=== PATIENT | male | born 1965 | race Native Hawaiian/Other Pacific Islander ===

== ENCOUNTER 2018-10-07 07:49 | Emergency (ER) | payer OTHER ==
[~2018-10-07] VITALS: Ht 185.4 cm; Wt 129.3 kg
[~2018-10-07 07:49] MED LIST: AMOXICILLIN ER775 MG PO
[2018-10-07 08:00] VITALS: TEMP 98
[2018-10-07 10:38] VITALS: BP 144/90
== END 2018-10-07 10:39 | disposition home or self-care (01) ==
LOC: ED 07:49
DX: S39.012A Strain of muscle, fascia and tendon of lower back, initial encounter (principal); V89.0XXA Person injured in unspecified motor-vehicle accident, nontraffic, initial encounter; Y92.89 Other specified places as the place of occurrence of the external cause
CPT/HCPCS: 99282

== ENCOUNTER 2018-11-18 18:51 | Emergency (ER) | payer OTHER ==
[~2018-11-18] VITALS: Ht 180.3 cm; Wt 103.4 kg
[2018-11-18 20:49] VITALS: BP 154/92; TEMP 98.4
== END 2018-11-18 20:49 | disposition home or self-care (01) ==
LOC: ED 18:51
DX: S63.591A Other specified sprain of right wrist, initial encounter (principal); X50.1XXA Overexertion from prolonged static or awkward postures, initial encounter; Y92.89 Other specified places as the place of occurrence of the external cause
CPT/HCPCS: 99282

== ENCOUNTER 2019-03-24 18:42 | Emergency (ER) | payer OTHER ==
[~2019-03-24] VITALS: Ht 180.3 cm; Wt 127.0 kg
[2019-03-24 18:44] VITALS: TEMP 98.7
[2019-03-24 19:20] LABS: PLATELET COUNT 287 K/uL (142-355)
[2019-03-24 19:27] LABS: POTASSIUM 3.8 mmol/L (3.6-5.2); SODIUM 139 mmol/L (136-145)
[2019-03-24 19:45] LABS: PARTIAL THROMBOPLASTIN TIME 25.4 SECONDS (24.5-33.6)
[2019-03-24 23:47] VITALS: BP 163/112
== END 2019-03-24 23:48 | disposition home or self-care (01) ==
LOC: ED 18:42
PROVIDERS: Emergency Medicine Emergency Medical Services
DX: R07.89 Other chest pain (principal)
CPT/HCPCS: 80053; 82550; 84484; 85027; 85610; 85730; 93005; 99284

== ENCOUNTER 2020-05-30 19:52 | Emergency (ER) | payer OTHER ==
[~2020-05-30] VITALS: Ht 180.3 cm; Wt 91.6 kg
[2020-05-30 22:53] LABS: PLATELET COUNT 256 K/uL (142-355)
[2020-05-30 23:03] VITALS: BP 136/88; TEMP 98.9
[2020-05-30 23:04] LABS: POTASSIUM 4.4 mmol/L (3.6-5.2)
== END 2020-05-30 23:04 | disposition home or self-care (01) ==
LOC: ED 19:52
PROVIDERS: Family Medicine
DX: J02.0 Streptococcal pharyngitis (principal); J06.9 Acute upper respiratory infection, unspecified
CPT/HCPCS: 80053; 82728; 85027; 85379; 87502; 87651; 99283

== ENCOUNTER 2020-07-14 13:27 | Outpatient (CLI) | payer OTHER | END 2020-07-14 19:39 | disposition home or self-care (01) | LOC: LAB 13:27 | PROVIDERS: ATTEND Family Medicine | DX: Z20.828 Contact with and (suspected) exposure to other viral communicable diseases (principal) | CPT/HCPCS: 87635; G2023; U0003 ==

== ENCOUNTER 2020-08-31 11:10 | Emergency (ER) | payer OTHER ==
[~2020-08-31] VITALS: Ht 180.3 cm; Wt 103.9 kg
[2020-08-31 11:33] VITALS: BP 164/106; TEMP 97.8
== END 2020-08-31 12:53 | disposition home or self-care (01) ==
LOC: ED 11:10
DX: S13.4XXA Sprain of ligaments of cervical spine, initial encounter (principal); S33.5XXA Sprain of ligaments of lumbar spine, initial encounter; V89.2XXA Person injured in unspecified motor-vehicle accident, traffic, initial encounter; Y92.89 Other specified places as the place of occurrence of the external cause
CPT/HCPCS: 99283

== ENCOUNTER 2020-11-07 16:34 | Emergency (ER) | payer OTHER ==
[~2020-11-07] VITALS: Ht 180.3 cm; Wt 113.4 kg
[2020-11-07 21:06] VITALS: BP 156/88; TEMP 98.7
== END 2020-11-07 21:06 | disposition home or self-care (01) ==
LOC: ED 16:34
PROC: 0HQ1XZZ Repair Face Skin, External Approach (ICD-10-PCS; principal; 2020-11-07)
DX: S01.112A Laceration without foreign body of left eyelid and periocular area, initial encounter (principal); W20.8XXA Other cause of strike by thrown, projected or falling object, initial encounter; Y92.89 Other specified places as the place of occurrence of the external cause
CPT/HCPCS: 99283

== ENCOUNTER 2021-03-22 15:48 | Emergency (ER) | payer OTHER ==
[~2021-03-22] VITALS: Ht 185.4 cm; Wt 95.3 kg
[2021-03-22 17:20] VITALS: BP 158/85; TEMP 98
== END 2021-03-22 17:20 | disposition home or self-care (01) ==
LOC: ED 15:48
DX: M25.551 Pain in right hip (principal)
CPT/HCPCS: 99282; J1885

== ENCOUNTER 2021-06-30 14:41 | Emergency (ER) | payer OTHER ==
[~2021-06-30] VITALS: Ht 185.4 cm; Wt 91.6 kg
[2021-06-30 15:49] VITALS: BP 147/95; TEMP 99.1
== END 2021-06-30 15:49 | disposition home or self-care (01) ==
LOC: ED 14:41
PROC: 0HQHXZZ Repair Right Upper Leg Skin, External Approach (ICD-10-PCS; principal; 2021-06-30)
DX: S71.111A Laceration without foreign body, right thigh, initial encounter (principal); W26.0XXA Contact with knife, initial encounter; Y92.89 Other specified places as the place of occurrence of the external cause
CPT/HCPCS: 99283; J7040

== ENCOUNTER 2021-09-20 10:33 | Emergency (ER) | payer OTHER ==
[~2021-09-20] VITALS: Ht 180.3 cm; Wt 99.3 kg
[2021-09-20 10:44] VITALS: TEMP 98.4
[2021-09-20 14:04] VITALS: BP 148/98
== END 2021-09-20 14:04 | disposition home or self-care (01) ==
LOC: ED 10:33
DX: S70.01XA Contusion of right hip, initial encounter (principal); X50.9XXA Other and unspecified overexertion or strenuous movements or postures, initial encounter; Y92.89 Other specified places as the place of occurrence of the external cause
CPT/HCPCS: 96372; 99283; J1885

== ENCOUNTER 2021-12-23 16:25 | Emergency (ER) | payer OTHER ==
[~2021-12-23] VITALS: Ht 182.9 cm; Wt 98.9 kg
[2021-12-23 19:05] VITALS: BP 169/100; TEMP 97.7
== END 2021-12-23 19:05 | disposition home or self-care (01) ==
LOC: ED 16:25
DX: M65.871 Other synovitis and tenosynovitis, right ankle and foot (principal)
CPT/HCPCS: 96372; 99283; J1885

== ENCOUNTER 2022-04-17 18:58 | Emergency (ER) | payer OTHER ==
[~2022-04-17] VITALS: Ht 182.9 cm; Wt 100.7 kg
[2022-04-17 20:26] VITALS: BP 142/92; TEMP 98
== END 2022-04-17 20:26 | disposition home or self-care (01) ==
LOC: ED 18:58
DX: J42 Unspecified chronic bronchitis (principal); Z20.822 Contact with and (suspected) exposure to COVID-19
CPT/HCPCS: 87502; 87635; 87651; 99283; U0003

== ENCOUNTER 2022-07-19 20:27 | Emergency (ER) | payer OTHER ==
[~2022-07-19] VITALS: Ht 180.3 cm; Wt 100.2 kg
[2022-07-19 20:35] VITALS: BP 150/99; TEMP 99
== END 2022-07-19 21:25 | disposition home or self-care (01) ==
LOC: ED 20:27
DX: S05.8X1A Other injuries of right eye and orbit, initial encounter (principal); X58.XXXA Exposure to other specified factors, initial encounter; Y93.89 Activity, other specified; Y92.89 Other specified places as the place of occurrence of the external cause
CPT/HCPCS: 99283

== ENCOUNTER 2022-07-29 18:39 | Emergency (ER) | payer OTHER ==
[~2022-07-29] VITALS: Ht 180.3 cm; Wt 100.2 kg
[2022-07-29 19:22] LABS: PLATELET COUNT 319 K/uL (142-355)
[2022-07-29 19:32] LABS: POTASSIUM 3.8 mmol/L (3.6-5.2)
[2022-07-29 21:03] VITALS: BP 140/90; TEMP 98.6
== END 2022-07-29 21:03 | disposition home or self-care (01) ==
LOC: ED 18:39
PROVIDERS: Emergency Medicine Emergency Medical Services
DX: K27.9 Peptic ulcer, site unspecified, unspecified as acute or chronic, without hemorrhage or perforation (principal)
CPT/HCPCS: 36415; 80053; 81002; 82150; 82272; 83690; 85027; 96360; 96374; 99284; J3490; Q9963

== ENCOUNTER 2022-08-23 18:41 | Emergency (ER) | payer OTHER ==
[~2022-08-23] VITALS: Ht 180.3 cm; Wt 100.2 kg
[2022-08-23 18:47] VITALS: TEMP 99.2
[2022-08-23 20:44] VITALS: BP 158/87
== END 2022-08-23 20:50 | disposition home or self-care (01) ==
LOC: ED 18:41
DX: U07.1 COVID-19 (principal)
CPT/HCPCS: 87635; 96372; 99283; J1100; U0003

== ENCOUNTER 2022-12-11 08:54 | Outpatient (CLI) | payer OTHER | END 2022-12-11 19:10 | disposition home or self-care (01) | LOC: US 08:54 | PROVIDERS: ATTEND Internal Medicine Endocrinology, Diabetes & Metabolism | DX: R10.11 Right upper quadrant pain (principal); R11.0 Nausea ==

== ENCOUNTER 2023-03-05 11:57 | Day surgery (SDC) | payer OTHER ==
[~2023-03-05] VITALS: Ht 157.5 cm; Wt 68.0 kg
== END 2023-03-05 14:00 | disposition home or self-care (01) ==
LOC: OR 11:57
PROVIDERS: ATTEND Internal Medicine Gastroenterology
PROC: 0DB78ZX Excision of Stomach, Pylorus, Via Natural or Artificial Opening Endoscopic, Diagnostic (ICD-10-PCS; principal; 2023-03-05)
DX: K20.90 Esophagitis, unspecified without bleeding (principal); K44.9 Diaphragmatic hernia without obstruction or gangrene; K31.84 Gastroparesis; K29.70 Gastritis, unspecified, without bleeding
CPT/HCPCS: J2001; J2704; J7120

== ENCOUNTER 2023-05-07 10:51 | Day surgery (SDC) | payer OTHER ==
[~2023-05-07] VITALS: Ht 165.1 cm; Wt 68.0 kg
== END 2023-05-07 16:00 | disposition home or self-care (01) ==
LOC: OR 10:51
PROVIDERS: ATTEND Internal Medicine Gastroenterology
PROC: 0DJD8ZZ Inspection of Lower Intestinal Tract, Via Natural or Artificial Opening Endoscopic (ICD-10-PCS; principal; 2023-05-07)
DX: Z12.11 Encounter for screening for malignant neoplasm of colon (principal); K64.0 First degree hemorrhoids; I10 Essential (primary) hypertension
CPT/HCPCS: J2704; J7120